=== PATIENT | female | born 1970 | race Caucasian/White ===

== ENCOUNTER 2018-05-05 18:50 | Observation (INO) ==
--- NOTE | 2018-05-05 19:08 | Emergency Department Note ---
Disposition Clinical Impression: Dizziness Chest pain Qualifiers: Chest pain type: unspecified Qualified Code(s): R07.9 - Chest pain, unspecified Dyspnea Qualifiers: Dyspnea type: unspecified Qualified Code(s): R06.00 - Dyspnea, unspecified Disposition: Admitted As Inpatient Condition: Good Referrals: Samreen Walsh MD [Primary Care Provider] - Forms: ED Satisfaction Letter Time of Disposition: 20:28 General Adult HPI - General Chief complaint: ED Dizziness Stated complaint: nausea, "low bp" Time Seen by Provider: 05/05/18 19:04 Source: patient Mode of arrival: ambulatory Limitations: no limitations Nursing Notes Reviewed: Yes Vital Signs Reviewed: Yes - History of Present Illness HPI Narrative: 48-year-old female who comes in complaining of not feeling well for the last 2 weeks she gets dizzy lightheaded feels like she is on a pass out. She has pounding in her chest. Today she had exertional dyspnea and some chest pain with walking in. States the pain radiated into her jaw. Risk factors include hypertension and family history. Patient stop smoking several months ago. Pt Subjective Complaint: Chest pain dyspnea dizziness and near syncope Onset (ago): week(s) Location: face, chest Pain Scale: 0 Quality: aching Consistency: now resolved Improves with: nothing Associated symptoms: Reports: other (Dizziness) Treatments Prior to Arrival: none - Related Data Home Medications Medication Instructions Recorded Confirmed Triamterene/HCTZ 37.5/25mg 1 tab PO DAILY 08/28/16 05/05/18 [Dyazide] Levothyroxine Sodium 100 mcg PO DAILY 02/19/18 05/05/18 Allergies Allergy/AdvReac Type Severity Reaction Status Date / Time levofloxacin [From Levaquin] Allergy See Verified 05/05/18 20:37 Comments Anesthetics - Amide Type AdvReac Nausea Verified 05/05/18 20:37 All systems ED: reviewed and negative except as stated. Constitutional: Denies: fever, chills, weakness, weight change Eyes: Denies: eye pain, eye discharge, vision change ENT ED: Reports: other (Jaw pain). Denies: ear pain, throat pain, dental pain, hearing loss, epistaxis, congestion, dysphagia Cardiovascular: Reports: chest pain. Denies: palpitations, dyspnea on exertion , edema, syncope Respiratory: Denies: cough, dyspnea, wheezes, hemoptysis, stridor Gastrointestinal: Denies: abdominal pain, nausea, vomiting, diarrhea, constipation, hematemesis, melena, hematochezia Genitourinary: Denies: dysuria, frequency, hematuria, discharge Musculoskeletal: Denies: back pain, neck pain, arthralgia, myalgia Integumentary: Denies: rash, abrasion, lesions Neurological: Denies: headache, weakness, numbness, paresthesias, confusion, abnormal gait, vertigo Psychiatric: Denies: anxiety, depression, suicidal thoughts, homicidal thoughts , auditory hallucinations, visual hallucinations Endocrine: Denies: fatigue Hematological/Lymphatic: Denies: easy bleeding, easy bruising Allergic/Immunologic: Denies: facial swelling, urticaria Past Medical History - Past Medical History Medical history: Reports: hypertension Surgical history: Reports: cholecystectomy Psychiatric history: Reports: depression FAMILY SERVICES WORKER history: Reports: no FAMILY SERVICES WORKER history - Social History Smoking Status: 2nd Hand Smoke Exposure Smokeless Tobacco Status: No Alcohol use: Reports: none Drug use: Reports: none Physical Exam - General Limitations: no limitations General appearance: alert, in no apparent distress - Head Head exam: atraumatic, normocephalic, normal inspection - Eye Eye exam: Present: normal appearance, PERRL, EOMI - ENT ENT exam: normal exam, normal oropharynx, mucous membranes moist - Neck Neck exam: Present: normal inspection, full ROM, trachea midline - Chest Chest inspection: Present: normal inspection, symmetric chest wall rise - Respiratory Respiratory exam: Present: normal lung sounds bilaterally - Cardiovascular Cardiovascular exam: Present: regular rate, normal rhythm, normal heart sounds - Abdominal Exam Abdominal exam: Present: soft, Non-Tender. Absent: tenderness, distention, guarding, rebound, rigidity - Extremities Exam Extremities exam: Present: normal inspection, full ROM. Absent: tenderness, pedal edema - Expanded Lower Extremity Exam Neurovascular/Tendon exam: Absent: motor deficit, sensory deficit, tendon deficit Gait: observed and normal - Back Exam Back exam: Present: normal inspection, full ROM. Absent: tenderness - Neurological Exam Neurological exam: Present: alert, oriented X3 - Psychiatric Psychiatric exam: Present: normal affect, normal mood - Skin Skin exam: Present: warm, dry, intact, normal color Course - Reevaluation(s) Reevaluation #1: 48-year-old with multiple risk factors comes in complaining of chest pains and exertional dyspnea and lightheaded dizziness. Patient will be admitted for rule out. Time: 20:28 - Consultations Consultation #1: Discussed with Dr. Quinonez, admit. Time: 20:45 Vital Signs Temperature 98.1 F 05/05/18 18:51 Pulse Rate 74 05/05/18 18:51 Respiratory Rate 18 05/05/18 18:51 Blood Pressure 147/90 05/05/18 18:51 O2 Sat by Pulse Oximetry 99 05/05/18 18:51 Temperature 98.1 F 05/05/18 18:51 Pulse Rate 64 05/05/18 19:04 Respiratory Rate 18 05/05/18 18:51 Blood Pressure 123/73 05/05/18 19:04 O2 Sat by Pulse Oximetry 99 05/05/18 18:51 Oxygen Delivery Oxygen Delivery Room Air Medical Decision Making - Lab Data Lab results reviewed: Yes I reviewed the patient's lab results. Result diagrams: 05/05/18 19:40 05/05/18 19:40 Lab Results 05/05/18 05/05/18 Range/Units 19:40 19:40 WBC 5.9 (4.3-11.1) K/mcL RBC 4.66 (3.82-4.97) M/mcL Hgb 13.4 (11.5-15.4) g/dL Hct 39.1 (35.3-44.9) % MCV 83.9 (83.0-100.0) fL MCH 28.8 (28.0-33.3) pg MCHC 34.3 (31.6-35.5) g/dL RDW 12.9 (11.5-14.5) % Plt Count 288 (140-400) K/mcL MPV 10.6 (9.4-12.4) fL Immature Gran % 0.5 (0-4) % Seg Neutrophils % 60.5 % Lymphocytes % 26.7 % Monocytes % 9.2 % Eosinophils % 2.4 % Basophils % 0.7 % Neutrophils # 3.6 (1.6-8.9) K/mcL Lymphocytes # 1.6 (0.6-4.6) K/mcL Monocytes # 0.5 (0.0-1.3) K/mcL Eosinophils # 0.1 (0.0-0.6) K/mcL Basophils # 0.0 (0.0-0.2) K/mcL Sodium 135 L (136-145) mEq/L Potassium 3.6 (3.5-5.1) mEq/L Chloride 97 L (98-107) mEq/L Carbon Dioxide 27 (23-29) mEq/L BUN 10 (6-20) mg/dL Creatinine 0.70 (0.60-1.20) mg/dL Est GFR ( Amer) > 60 (> 60) Est GFR (Non-Af Amer) > 60 (> 60) BUN/Creatinine Ratio 14 (6-26) Glucose 106 H (70-105) mg/dL Calculated Osmolality 279 L (280-300) Calcium 9.7 (8.6-10.3) mg/dL Troponin I < 0.03 (< 0.04) ng/mL - Radiology Data Radiology results reviewed: Yes I reviewed the patient's radiology results. Chest X-Ray 05/05/18 19:04 IMPRESSION: No acute process. D/ / Kulwinder Jasso MD / Kulwinder Jasso MD Interpreting Provider: Kulwinder Jasso MD Head CT 05/05/18 19:04 IMPRESSION: 1. No acute intracranial abnormality. 2. Mild cerebral atrophy. D/ / Edu Camacho MD / Edu Camacho MD Interpreting Provider: Edu Camacho MD - EKG Data EKG #1 EKG attestation: Yes I reviewed and interpreted this EKG. EKG shows normal: sinus rhythm Rate: normal Rhythm: NSR Shirley/QRS: normal Interpretation: no acute changes
[2018-05-05 20:07] LABS: Basophils % 0.7 %; Eosinophils # 0.1 K/mcL (0.0-0.6); Eosinophils % 2.4 %; Hematocrit 39.1 % (35.3-44.9); Hemoglobin 13.4 g/dL (11.5-15.4); Immature Granulocytes % 0.5 % (0-4); Lymphocytes # 1.6 K/mcL (0.6-4.6); Lymphocytes % 26.7 %; Mean Corpuscular HGB Conc 34.3 g/dL (31.6-35.5); Mean Corpuscular Hemoglobin 28.8 pg (28.0-33.3); Mean Corpuscular Volume 83.9 fL (83.0-100.0); Mean Platelet Volume 10.6 fL (9.4-12.4); Monocytes # 0.5 K/mcL (0.0-1.3); Monocytes % 9.2 %; Neutrophils # 3.6 K/mcL (1.6-8.9); Platelet Count 288 K/mcL (140-400); Red Blood Count 4.66 M/mcL (3.82-4.97); Red Cell Distribution Width 12.9 % (11.5-14.5); Segmented Neutrophils % 60.5 %
[2018-05-05 20:15] LABS: Troponin I < 0.03 ng/mL (< 0.04)
[2018-05-05 20:24] LABS: BUN/Creatinine Ratio 14 (6-26); Blood Urea Nitrogen 10 mg/dL (6-20); Calcium 9.7 mg/dL (8.6-10.3); Carbon Dioxide 27 mEq/L (23-29); Chloride 97 mEq/L (98-107); Glucose 106 mg/dL (70-105); Osmolality,Calculated 279 (280-300); Potassium 3.6 mEq/L (3.5-5.1); Sodium 135 mEq/L (136-145); eGFR For African Americans > 60 (> 60); eGFR For Non-African Americans > 60 (> 60)
[2018-05-05] MEDS ORDERED: Naloxone 0.4 MG/ML INJ IVP PRN (21:09)
[2018-05-05] MEDS ORDERED: Acetaminophen 325 MG TABLET PO PRN (21:09)
--- NOTE | 2018-05-05 21:17 | Internal Med History&Physical ---
Date of Encounter: 05/05/18 Time of Encounter: 21:10 Internal Medicine - H&P: HPI Chief complaint: Not feeling well Admitted From: Emergency Dept Plans for Post Hospital Care: Home History of present illness: Ms. Basurto is a 48 year old female with history of hypertension, hypothyroidism , migraines, carotidynia, who presented to the ED complaining of "not feeling well and yucky" for 2 weeks. In the ED staff called for this admission they reported that we are admitting the patient for chest pain. When I went to see the patient she denied any chest pain and told me I do not know with chest pain story came from. She tells me the main reason that she came to the hospital is because she has not been feeling well for a couple weeks or so. She has not been feeling herself. She is been lethargic and tired. She reports dizziness and feeling that she will pass out. She denies vertigo and she specifically states that saying she does not have any spinning sensation. 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 She tells me she has some palpitations for the last 2 weeks. It comes and go and they are not on a daily basis. No chest pain associated with that. No shortness of breath. She feels nauseous and as if she is going to pass out but never really did so. When she woke up this afternoon she felt a headache that went away with ibuprofen but she did not feel herself and she checked her blood pressure and she noted that her systolic was in the 90s. When she stood up she felt dizzy as well. She tells me that about a 1-2 years ago she was diagnosed with carotidynia and was on prednisone. She was evaluated by ENT, vascular, and rheumatology and was not happy with the care that she is received this as no one could tell her exactly what caused her symptoms at the time and "all they wanted to do is put me on prednisone and pain meds". In the ED she had a workup that was mostly unremarkable including orthostatics. Troponins were not elevated. EKG with normal sinus rhythm with T -wave inversions in V1 and V2 which were there previously. Blood pressure was 147/90 on initial presentation. The patient did not take her blood pressure medications today. Past Med Surg Social Fam HX - Past Medical History Medical history: hypertension Additional medical history: CRPS I of upper limb. Adrenal adenoma. hiatal hernia. IBS. Depression elevated Sed Rate. Low Hgb level. High C-Reactive Protein Psychiatric history: depression - Past Surgical History Surgical History: cholecystectomy - Social History Smoking Status: 2nd Hand Smoke Exposure Smokeless Tobacco Status: No Alcohol use: none Drug use: none Internal Medicine - H&P: Meds Triamterene/HCTZ 37.5/25mg [Dyazide] 1 tab PO DAILY 08/28/16 [History] Levothyroxine Sodium 100 mcg PO DAILY 02/19/18 [History] 3 Allergy/AdvReac Type Severity Reaction Status Date / Time levofloxacin [From Levaquin] Allergy See Verified 05/05/18 20:37 Comments Anesthetics - Amide Type AdvReac Nausea Verified 05/05/18 20:37 All Systems PM: A 10-system review of systems was performed and is negative for pertinent findings except as documented above in the HPI. Review of systems: All systems reviewed are negative except for as mentioned above - Constitutional Vitals: Temp Pulse Resp BP Pulse Ox 98.1 F 64 18 123/73 99 05/05/18 18:51 05/05/18 19:04 05/05/18 18:51 05/05/18 19:04 05/05/18 18:51 Exam: GEN: NAD HEENT: AT, NC, No cyanosis, oral mucosa is moist, No JVD Lymphatics: No lymphadenoapthy Eyes: Extrocular muscles intact, anicteric CVS:RRR. S1, S2, No m/r/g RESP: CTAB ABD: Soft, NT, ND, +BS EXT: No edema, No rashes, 2+ DP NEURO: Nonfocal, CN II-XII intact, No focal motor or sensory deficits Psych: Cooperative, Not anxious or depressed Internal Med - H&P Results - Labs CBC & Chem 7: 05/05/18 19:40 05/05/18 19:40 - Assessment and plan (1) Dizziness Current Visit: Yes Status: Acute Assessment and plan: Unclear etiology. Not orthostatic. EKG with no ST or T wave abnormalities that are acute. We will check TSH. We will place the patient on telemetry. May eventually need a Holter monitor she reports palpitations. Check an echocardiogram and carotid ultrasounds. (2) HTN (hypertension) Current Visit: Yes Status: Acute Assessment and plan: Resume home antihypertensives Qualifiers: Hypertension type: unspecified Qualified Code(s): I10 - Essential (primary ) hypertension (3) Hypothyroidism Current Visit: Yes Status: Acute Assessment and plan: We will check TSH. Resume home levothyroxine. Qualifiers: Hypothyroidism type: unspecified Qualified Code(s): E03.9 - Hypothyroidism , unspecified (4) DVT prophylaxis Current Visit: Yes Status: Acute Assessment and plan: Heparin subcutaneous - Time Spent With Patient Total time spent is greater than 50% in coordination of care (as documented) at patient's floor/unit and/or counseling patient:
[2018-05-05] MEDS: *HR* Heparin 5,000 UNIT/ML VIAL SQ SCH (23:49)
[2018-05-06] MEDS: *HR* Heparin 5,000 UNIT/ML VIAL SQ SCH (06:00)
[2018-05-06 07:00] LABS: Basophils % 0.4 %; Eosinophils # 0.2 K/mcL (0.0-0.6); Eosinophils % 2.8 %; Hematocrit 35.9 % (35.3-44.9); Hemoglobin 11.9 g/dL (11.5-15.4); Immature Granulocytes % 0.2 % (0-4); Lymphocytes # 1.7 K/mcL (0.6-4.6); Lymphocytes % 31.4 %; Mean Corpuscular HGB Conc 33.1 g/dL (31.6-35.5); Mean Corpuscular Hemoglobin 27.7 pg (28.0-33.3); Mean Corpuscular Volume 83.7 fL (83.0-100.0); Mean Platelet Volume 10.5 fL (9.4-12.4); Monocytes # 0.4 K/mcL (0.0-1.3); Monocytes % 8.2 %; Neutrophils # 3.1 K/mcL (1.6-8.9); Platelet Count 262 K/mcL (140-400); Red Blood Count 4.29 M/mcL (3.82-4.97); Red Cell Distribution Width 13.2 % (11.5-14.5)
[2018-05-06 07:06] LABS: BUN/Creatinine Ratio 15 (6-26); Blood Urea Nitrogen 10 mg/dL (6-20); Carbon Dioxide 27 mEq/L (23-29); Chloride 100 mEq/L (98-107); Glucose 117 mg/dL (70-105); Osmolality,Calculated 284 (280-300); Potassium 3.6 mEq/L (3.5-5.1); Sodium 137 mEq/L (136-145); eGFR For African Americans > 60 (> 60); eGFR For Non-African Americans > 60 (> 60)
[2018-05-06 07:19] LABS: Thyroid Stimulating Hormone 4.743 mcIU/mL (0.340-5.600)
[2018-05-06 11:13] VITALS: BP 128/91
--- NOTE | 2018-05-06 11:33 | Discharge Summary ---
- NOTES TO OUTPATIENT PROVIDER Notes to Outpatient Provider: Presented with generalized weakness and fatigue and lethargy. He was hypotensive on arrival. Blood pressure medications held, symptoms improved. Changed anti-HTN medications at discharge. Patient no longer taking Dyazide only taking HCTZ. Date of Encounter: 05/06/18 Time of Encounter: 11:31 - Discharge Diagnosis (1) Dizziness Priority: Primary Status: Acute Assessment and Plan: Presented with dizziness of Unclear etiology Negative for orthostasis. EKG with no ST or T wave abnormalities that are acute compared to prior ECG tracings TSH unremarkable TTE-grossly normal Carotid duplex studies with nonstenotic plaque No events on telemetry throughout stay Was hypotensive on arrival likely caused by current anti-HTN regimen Aurelia anti-HTN medications, hypotension and dizziness resolved Discontinue Dyazide at discharge. Patient only taking HCTZ 12.5 mg daily at discharge Remains hemodynamically stable Uneventful hospital course. Patient instructed to follow-up with PCP within 1 week of discharge. Also informed return to the ED should dizziness return especially in the setting of dizziness with syncope/near syncope. Patient verbalizes understanding denies any further questions at this time. Patient was given education regarding HC TZ medication. Verbalizes understanding denies any further questions at this time. (2) HTN (hypertension) Priority: Secondary Status: Acute Assessment and Plan: Hypotensive on arrival likely relating to presentation including weakness and fatigue. Dyazide discontinued. Discharged on hydrochlorothiazide 12.5 mg daily dosing Qualifiers: Hypertension type: unspecified Qualified Code(s): I10 - Essential (primary ) hypertension (3) Hypothyroidism Priority: Primary Status: Acute Assessment and Plan: TSH checked, within normal limits. Resume home levothyroxine at discharge Qualifiers: Hypothyroidism type: unspecified Qualified Code(s): E03.9 - Hypothyroidism , unspecified Hospital course: Ms. Basurto is a 48 year old female Please see assessment and plan for hospital course Discharge discussed with: patient, family, nurse - Time Spent with Patient Total time spent providing and/or coordinating discharge services: Less than 30 minutes - Discharge Medications Prescriptions: Hydrochlorothiazide [Microzide] 12.5 mg PO DAILY 30 Days #30 capsule Home Medications: Levothyroxine Sodium 100 mcg PO DAILY 02/19/18 [History] Hydrochlorothiazide [Microzide] 12.5 mg PO DAILY 30 Days #30 capsule 05/06/18 [ Rx] Allergies/Adverse Reactions: 3 Allergy/AdvReac Type Severity Reaction Status Date / Time levofloxacin [From Levaquin] Allergy See Verified 05/05/18 20:37 Comments Anesthetics - Amide Type AdvReac Nausea Verified 05/05/18 20:37 Date of admission: 05/05/18 21:09 Primary care physician: Samreen Walsh MD Discharging clinician: Sami Adame Anticipated date of discharge: 05/06/18 - Constitutional Vitals: Temp Pulse Resp BP Pulse Ox 38.0 F L 68 15 128/91 97 05/06/18 11:10 05/06/18 11:10 05/06/18 11:10 05/06/18 11:10 05/06/18 11:10 General appearance: Present: A&O X 3, answers questions appropriately - Head Head exam: Present: atraumatic, normocephalic - Eye Eye exam: Present: EOMI, PERRL, conjuntiva pink, sclera anicteric Pupils: Present: PERRL - Neck Neck exam general surgery: Present: supple, trachea midline. Absent: lymphadenopathy - Respiratory Respiratory exam: Present: CTAB. Absent: accessory muscle use, rales, rhonchi, wheezes - Cardiovascular Cardiovascular exam: Present: RRR, +S1, +S2. Absent: diastolic murmur, gallop, rubs, systolic murmur - GI/Abdominal GI/Abdominal exam: Present: normal bowel sounds, soft, no peritoneal signs. Absent: distended, tenderness - Extremities Exam Extremities exam: Present: warm, radial pulses palpable and symmetrical. Absent : calf tenderness, cyanotic, pedal edema - Neurological Exam Neurological exam: Present: alert, CN II-XII intact, oriented X3, no focal deficits, strengths equal and symetr throughout. Absent: pronater drift, facial droop, speech deficit - Skin Skin exam: Present: dry, intact - Patient Status Disposition: Home, Self-Care Condition: Good Functional capacity at discharge: independent ambulation Overall status at discharge: patient is back to baseline - Discharge Instructions Follow Up With: Samreen Walsh MD [Primary Care Provider] - 05/17/18 11:00 am - Diet and Activity Activity: increase activity as tolerated, resume usual activities as tolerated Diet: advance to your usual diet
--- NOTE | 2018-05-06 16:38 | Electrocardiograph Report ---
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
== END 2018-05-06 13:53 | disposition home or self-care (01) ==
LOC: 3BNU 18:50 → EMEROO 18:50 → 3BNU 21:54
PROVIDERS: ADMIT Internal Medicine; ATTEND Internal Medicine